=== PATIENT | male | born 2005 | race Caucasian/White ===

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

== ENCOUNTER 2024-05-03 18:00 | Emergency (ER) | payer SELFPAY ==
[2024-05-03] MEDS: Lidocaine 1% 5 ML VIAL INJECT STA (20:41)
[2024-05-03] MEDS: Diphtheria,Pertussis(Acell),Tetanus Vaccine 0.5 ML Syringe IM ONE (20:43)
== END 2024-05-03 20:52 | disposition home or self-care (01) ==
LOC: MW.ED 18:00
DX: S01.111A Laceration without foreign body of right eyelid and periocular area, initial encounter (principal); Z75.8 Other problems related to medical facilities and other health care; Z23 Encounter for immunization; Z88.8 Allergy status to other drugs, medicaments and biological substances; W22.8XXA Striking against or struck by other objects, initial encounter; Y93.89 Activity, other specified; Y99.0 Civilian activity done for income or pay
CPT/HCPCS: 12011; 90471; 90715; 99282; 99282-25